=== PATIENT | male | born 1960 | race Two or more races ===

== ENCOUNTER 2016-12-23 14:39 | Emergency (ER) | payer SELFPAY ==
[2016-12-23 15:30] LABS: BASO # 0.1 x10^3/uL (0.0-0.2); BASO % 1 % (0-3); EOS % 11 % (0-3); HEMATOCRIT 43.4 % (39.0-53.0); HEMOGLOBIN 15.1 g/dL (13.0-17.5); LYMPH # 3.3 x10^3/uL (1.0-4.8); LYMPH % 34 % (24-48); MEAN CORPUSCULAR HEMOGLOBIN 32 pg (25-35); MEAN CORPUSCULAR HGB CONC 35 g/dL (31-37); MEAN CORPUSCULAR VOLUME 91 fL (79-100); MONO % 7 % (0-9); NEUT % 48 % (31-73); PLATELET COUNT 296 x10^3/uL (140-400); RED BLOOD COUNT 4.77 x10^6/uL (4.30-5.70); RED CELL DISTRIBUTION WIDTH 14.3 % (11.5-14.5); WHITE BLOOD COUNT 9.6 x10^3/uL (4.0-11.0)
[2016-12-23 15:37] LABS: CALCIUM 8.1 mg/dL (8.5-10.1); CREATININE 0.9 mg/dL (0.7-1.3); GFR 87.6; POTASSIUM 3.6 mmol/L (3.5-5.1)
--- NOTE | 2016-12-23 15:39 | PHYS DOC ---
Past Medical History Past Medical History: No Pertinent History Past Surgical History: Other Additional Past Surgical Histo: left knee surgery Alcohol Use: Rarely Drug Use: None Adult General Chief Complaint Chief Complaint: HEADACHE, nosebleeds HPI HPI Patient is a 56 year old male brought to the ED by his son. The patient does not speak Norwegian but his son speaks Barbadian and Norwegian and translates well at the bedside. Patient's for about 2 weeks has had some pain in the back of his head and down the back of his neck. He indicates his paraspinous muscles bilaterally. He has not noticed any exacerbating factors. When he takes Advil it goes away for a while. When it first starts it's usually more painful but then it will let up either by taking Advil or just by itself. It doesn't seem to go away but it will come and go somewhat. Right now it is not bad. He has no associated nausea or vomiting, no vision changes. He has been able to continue going to work. 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 He also 2 or 3 days has had a nosebleed in the morning. It's out of his right side. He has not noticed bleeding anywhere else, denies bleeding of his gums, bleeding in his stools, and denies bruising. It stops quickly. Also at home he had a couple of episodes where both of his legs felt shaky and weak. He didn't feel lightheaded or faint, just his legs felt weak. There was no pain. He's never had that before. He was painting when it happened. He had had a good meal, has not been drinking alcohol, and he does not feel like he is dehydrated. Patient has no PCP and takes note daily medications. Review of Systems Review of Systems Constitutional: Denies fever or chills [] Eyes: Denies change in visual acuity, redness, or eye pain [] HENT: As in history of present illness Respiratory: Denies cough or shortness of breath [] Cardiovascular: Denies chest pain GI: Denies abdominal pain, nausea, vomiting, bloody stools or diarrhea [] : Denies dysuria or hematuria [] Musculoskeletal: Denies back pain or joint pain [] Integument: Denies rash or skin lesions [] Neurologic: As in history of present illness Current Medications Current Medications Current Medications Medications (Trade) Dose Ordered Sig/Jair Start Time Stop Time Status Last Admin Dose Admin Ketorolac Tromethamine (Toradol) 30 mg 1X ONCE 12/23/16 15:45 12/23/16 15:46 DC 12/23/16 15:50 30 MG Sodium Chloride 1,000 ml @ 1,000 mls/hr Q1H 12/23/16 15:45 12/23/16 16:44 DC 12/23/16 15:50 1,000 MLS/HR Allergies Allergies Allergies Coded Allergies Type Severity Reaction Last Updated Verified No Known Drug Allergies 12/23/16 No Physical Exam Physical Exam Constitutional: Well developed, well nourished, no acute distress, non-toxic appearance. BP 140/80. Laying comfortably on the cart watching TV, no acute distress, alert, mentating normally. HENT: Normocephalic, atraumatic, bilateral external ears normal, oropharynx moist. Nose: Externally normal. Nasal mucosa with increased redness, swelling, generalized congestion, worse on the right. No evidence of recent bleeding site. No abnormality on inspection. Eyes: conjunctiva normal, no discharge. [] Neck: Normal range of motion, supple, no stridor. Mild tenderness to palpation of the paraspinous musculature bilaterally including occipital insertion of the paraspinous cervical muscles. No spasm, no swelling, no overlying skin abnormality seen. No midline tenderness. Cardiovascular:Heart rate regular rhythm, no murmur [] Lungs & Thorax: Bilateral breath sounds clear to auscultation [] Abdomen: Bowel sounds normal, soft, no tenderness, no masses, no pulsatile masses. [] Skin: Warm, dry, no erythema, no rash. [] Extremities: No tenderness, no cyanosis, no clubbing, ROM intact, no edema. When I asked the patient how his legs feel now, he independently lifts each of them off the cart and kicks them around, stating "fine". Neurologic: Alert and oriented X 3, normal motor function, normal sensory function, no focal deficits noted. [] Current Patient Data Vital Signs Vital Signs Date Time Temp Pulse Resp B/P (MAP) Pulse Ox O2 Delivery O2 Flow Rate FiO2 12/23/16 15:50 66 20 137/76 (96) 95 Room Air 12/23/16 14:50 98.0 98.0 Lab Values Laboratory Tests Test 12/23/16 14:55 12/23/16 16:10 White Blood Count 9.6 x10^3/uL (4.0-11.0) Red Blood Count 4.77 x10^6/uL (4.30-5.70) Hemoglobin 15.1 g/dL (13.0-17.5) Hematocrit 43.4 % (39.0-53.0) Mean Corpuscular Volume 91 fL (79-100) Mean Corpuscular Hemoglobin 32 pg (25-35) Mean Corpuscular Hemoglobin Concent 35 g/dL (31-37) Red Cell Distribution Width 14.3 % (11.5-14.5) Platelet Count 296 x10^3/uL (140-400) Neutrophils (%) (Auto) 48 % (31-73) Lymphocytes (%) (Auto) 34 % (24-48) Monocytes (%) (Auto) 7 % (0-9) Eosinophils (%) (Auto) 11 % (0-3) H Basophils (%) (Auto) 1 % (0-3) Neutrophils # (Auto) 4.6 x10^3uL (1.8-7.7) Lymphocytes # (Auto) 3.3 x10^3/uL (1.0-4.8) Monocytes # (Auto) 0.6 x10^3/uL (0.0-1.1) Eosinophils # (Auto) 1.0 x10^3/uL (0.0-0.7) H Basophils # (Auto) 0.1 x10^3/uL (0.0-0.2) Erythrocyte Sedimentation Rate 3 (0-15) Sodium Level 142 mmol/L (136-145) Potassium Level 3.6 mmol/L (3.5-5.1) Chloride Level 104 mmol/L (98-107) Carbon Dioxide Level 29 mmol/L (21-32) Anion Gap 9 (6-14) Blood Urea Nitrogen 15 mg/dL (8-26) Creatinine 0.9 mg/dL (0.7-1.3) Estimated GFR (Cockcroft-Gault) 87.6 BUN/Creatinine Ratio 17 (6-20) Glucose Level 100 mg/dL (70-99) H Calcium Level 8.1 mg/dL (8.5-10.1) L Total Bilirubin 0.3 mg/dL (0.2-1.0) Aspartate Amino Transferase (AST) 26 U/L (15-37) Alanine Aminotransferase (ALT) 50 U/L (16-63) Alkaline Phosphatase 74 U/L (46-116) Total Protein 7.4 g/dL (6.4-8.2) Albumin 3.9 g/dL (3.4-5.0) Albumin/Globulin Ratio 1.1 (1.0-1.7) Urine Collection Type Unknown Urine Color Yellow Urine Clarity Clear Urine pH 7.0 Urine Specific [place] 1.010 Urine Protein Negative mg/dL (NEG-TRACE) Urine Glucose (UA) Negative mg/dL (NEG) Urine Ketones (Stick) Negative mg/dL (NEG) Urine Blood Negative (NEG) Urine Nitrite Negative (NEG) Urine Bilirubin Negative (NEG) Urine Urobilinogen Dipstick 0.2 mg/dL (0.2 mg/dL) Urine Leukocyte Esterase Negative (NEG) Urine RBC 0 /HPF (0-2) Urine WBC 0 /HPF (0-4) Urine Squamous Epithelial Cells Occ /LPF Urine Bacteria 0 /HPF (0-FEW) Laboratory Tests 12/23/16 14:55 Laboratory Tests 12/23/16 14:55 EKG EKG [] Radiology/Procedures Radiology/Procedures CT of the head read by the radiologist, no acute findings. [] Course & Med Decision Making Course & Med Decision Making Pertinent Labs and Imaging studies reviewed. (See chart for details) 56-year-old healthy male with no significant medical problems who works an active job cleaning buildings brought to the ED by his son with really 3 complaints. #1, he's had an occipital headache with some discomfort down the back of his neck off and on for about 2 weeks. The headache is not severe, it does not sound like any type of concerning type of headache, it does not sound like meningitis, his neck is very supple, he has had no fever or chills. When the headache is more bothersome, Advil takes it away. No thunderclap onset or other concerning symptoms. For that, we will check CT scan of his head. #2, he's had nosebleeds 2 mornings in a row out of the right side of his nose. No other bleeding anywhere else on his body. He has pretty significant congestion of his nose on inspection, this may be related to seasonal allergies. #3, today he had 2 episodes where his legs felt shaky and weak. Currently he has no leg weakness. Unclear what might have caused this, we will give him a liter of fluids and see if that helps. After 1 L of IV fluids and Toradol 30 mg IV, patient reported to the nursing staff that he feels great, his pain is gone, he feels fine. I discussed with the patient and his son that CT and labs do not show any serious or acute abnormalities which is reassuring. He does have elevated eosinophilia which may be consistent with seasonal allergies contributing both to his headache and his nosebleeds. Discussed this with the patient and his son. See instructions for plan. [] Dragon Disclaimer Dragon Disclaimer This electronic medical record was generated, in whole or in part, using a voice recognition dictation system. Departure Departure Impression: Primary Impression: Headache Additional Impressions: Epistaxis, recurrent Seasonal allergies Disposition: 01 HOME, SELF-CARE Condition: STABLE Referrals: NO PCP (PCP) Patient Instructions: General Headache Without Cause, [id number] Additional Instructions: Today, lab tests and CT scan did not show any serious cause of your symptoms. CT scan negative for any kind of brain abnormality like a brain tumor. I did not find any evidence of any serious cause. Lab tests did show that you may have seasonal allergies, which we discussed as a possible cause of your nose bleeds. For that, I recommend that you try taking a daily, nonsedating antihistamine such as loratadine once daily. If you have symptoms of congestion in your nose, try using daily a steroid nasal spray like Flovent. When you have a nosebleed, try using a nasal decongestant spray such as Afrin. This will shrink the blood vessels and stop the bleeding. Seasonal allergy symptoms may also contribute to headaches. Be sure you are drinking plenty of fluid and well hydrated. It is okay to take an Advil occasionally for headache. If you continue to have headaches after drinking plenty of fluids and taking a daily antihistamine, I recommend follow- up with a primary care provider. See the list that you were given. Problem Qualifiers OPAL GOLDEN MD Dec 23, 2016 15:39
[2016-12-23 15:43] LABS: ALBUMIN 3.9 g/dL (3.4-5.0); ALBUMIN/GLOBULIN RATIO 1.1 (1.0-1.7); TOTAL BILIRUBIN 0.3 mg/dL (0.2-1.0); TOTAL PROTEIN 7.4 g/dL (6.4-8.2)
[2016-12-23] MEDS ORDERED: IV NORMAL SALINE 1000ML BAG 1,000 ML IV SCH (15:45)
[2016-12-23] MEDS ORDERED: KETOROLAC TROMETHAMINE 30 MG/ML INJ. IV ONE (15:45)
[2016-12-23 15:50] VITALS: BP 137/76
--- NOTE | 2016-12-23 16:00 | RAD ---
CT HEAD WO CONTRAST History: Occipital headache for 2 weeks Comparison: None. Technique: Noncontrast [address] images were acquired from the skull base to the vertex. Exposure: One or more of the following individualized dose reduction techniques were utilized for this examination: 1. Automated exposure control 2. Adjustment of the mA and/or kV according to patient size 3. Use of iterative reconstruction technique. Findings: No acute extra-axial or parenchymal hemorrhage is identified. There is no significant intra-axial mass effect, midline shift, or extra-axial fluid collection. The hernandez-white differentiation of the major vascular territories is preserved. The ventricles, sulci, and cisterns are within normal limits in size and configuration. There is patchy mild ethmoid air cell mucosal thickening. The mastoid air cells are aerated. No acute calvarial abnormality is identified. Impression: 1. No acute intracranial abnormality is identified. Electronically signed by: Tripp Etienne MD (12/23/2016 3:57 PM) [facility] [place]
[2016-12-23 16:20] LABS: BILIRUBIN,URINE NEGATIVE (NEG); GLUCOSE,URINE NEGATIVE (NEG); NITRITE,URINE NEGATIVE (NEG); PROTEIN,URINE NEGATIVE (NEG-TRACE); UROBILINOGEN,URINE 0.2 mg/dL (0.2 mg/dL)
[2016-12-23 16:27] LABS: BACTERIA,URINE 0 /HPF (0-FEW); RBC,URINE 0 /HPF (0-2); SQUAMOUS EPITHELIAL CELL,UR OCC /LPF; WBC,URINE 0 /HPF (0-4)
== END 2016-12-23 16:52 | disposition home or self-care (01) ==
LOC: ER 14:39
DX: R51 Headache (principal); R04.0 Epistaxis; J30.2 Other seasonal allergic rhinitis; R53.1 Weakness
CPT/HCPCS: 36415; 70450; 80053; 81001; 85027; 85651; 96361; 96374; 99285; J1885; J7030

== ENCOUNTER 2017-04-26 07:44 | Emergency (ER) | payer SELFPAY ==
[~2017-04-26] VITALS: Ht 165.1 cm; Wt 77.1 kg
[2017-04-26 07:48] VITALS: BP 115/80
[2017-04-26] MEDS ORDERED: AMOX1TAB61 PO (07:57)
--- NOTE | 2017-04-26 07:58 | PHYS DOC ---
Past Medical History Past Medical History: No Pertinent History Past Surgical History: Other Additional Past Surgical Histo: knee Alcohol Use: Rarely Drug Use: None Adult General Chief Complaint Chief Complaint: EARACHE/EAR PAIN [facility] HPI Patient is a 56 year old male presents to the ED complaining of ear pain x 4 days. States he has had a cough and congestion over the last week. Describes the pain as sharp. Rates as 12/28. Denies fever, n/v, chest pain, shortness of breath, dizziness, weakness, headache, vision changes, neck pain, photophobia or weakness. Review of Systems Review of Systems Constitutional: Denies fever or chills [] Eyes: Denies change in visual acuity, redness, or eye pain [] HENT: Complains of ear pain and congestion. Denies sore throat [] Respiratory: Complains of cough. Denies shortness of breath [] Cardiovascular: No additional information not addressed in HPI [] GI: Denies abdominal pain, nausea, vomiting, bloody stools or diarrhea [] : Denies dysuria or hematuria [] Musculoskeletal: Denies back pain or joint pain [] Integument: Denies rash or skin lesions [] Neurologic: Denies headache, focal weakness or sensory changes [] Endocrine: Denies polyuria or polydipsia [] All other systems were reviewed and found to be within normal limits, except as documented in this note. Allergies Allergies Allergies Coded Allergies Type Severity Reaction Last Updated Verified No Known Drug Allergies 12/23/16 No Physical Exam Physical Exam Constitutional: Well developed, well nourished, no acute distress, non-toxic appearance. [] HENT: Normocephalic, atraumatic, bilateral external ears normal, MILD LEFT TM ERYTHEM AND BULGING. MILD MAXILLARY SINUS TENDERNESS. oropharynx moist, no oral exudates. [] Eyes: PERRLA, EOMI, conjunctiva normal, no discharge. [] Neck: Normal range of motion, no tenderness, supple, no stridor. [] Cardiovascular:Heart rate regular rhythm, no murmur [] Lungs & Thorax: Bilateral breath sounds clear to auscultation [] Skin: Warm, dry, no erythema, no rash. [] Neurologic: Alert and oriented X 3, normal motor function, normal sensory function, no focal deficits noted. [] Psychologic: Affect normal, judgement normal, mood normal. [] Current Patient Data Vital Signs Vital Signs Date Time Temp Pulse Resp B/P (MAP) Pulse Ox O2 Delivery O2 Flow Rate FiO2 04/26/17 07:48 97.5 64 20 98 Room Air 97.5 EKG EKG [] Radiology/Procedures Radiology/Procedures [] Course & Med Decision Making Course & Med Decision Making Pertinent Labs and Imaging studies reviewed. (See chart for details) [] Dragon Disclaimer Dragon Disclaimer This electronic medical record was generated, in whole or in part, using a voice recognition dictation system. Departure Departure Impression: Primary Impression: Upper respiratory infection Additional Impression: Otitis media Disposition: HOME, SELF-CARE Condition: STABLE Referrals: NO PCP (PCP) EILEEN NICOLAS MD Patient Instructions: Otitis Media, Adult, Upper Respiratory Infection, Adult Scripts Amoxicillin/Potassium Clav (AUGMENTIN 875-125 TABLET) 1 Each Tablet 1 TAB PO BID, #20 TAB Prov: ROSALINO DE LA ROSA 04/26/17 Problem Qualifiers ROSALINO DE LA ROSA Apr 26, 2017 07:58
== END 2017-04-26 08:17 | disposition home or self-care (01) ==
LOC: ER 07:44
DX: H66.92 Otitis media, unspecified, left ear (principal); J06.9 Acute upper respiratory infection, unspecified
CPT/HCPCS: 99283